=== PATIENT | male | born 1950 | race Caucasian/White ===

== ENCOUNTER → 2019-11-14 | Outpatient (CLI) | payer OTHER | LOC: HYPER 12:09 | PROVIDERS: ATTEND Emergency Medicine Emergency Medical Services | DX: L89.893 Pressure ulcer of other site, stage 3 (principal); G90.09 Other idiopathic peripheral autonomic neuropathy; M25.571 Pain in right ankle and joints of right foot; R60.0 Localized edema; G62.9 Polyneuropathy, unspecified; Z87.891 Personal history of nicotine dependence; Z96.659 Presence of unspecified artificial knee joint; Z96.619 Presence of unspecified artificial shoulder joint ==

== ENCOUNTER → 2019-12-04 | Outpatient (CLI) | payer OTHER | LOC: HYPER 06:19 | PROVIDERS: ATTEND Specialist | DX: L89.893 Pressure ulcer of other site, stage 3 (principal); L03.116 Cellulitis of left lower limb; R60.0 Localized edema; G90.09 Other idiopathic peripheral autonomic neuropathy; M25.571 Pain in right ankle and joints of right foot; Z87.891 Personal history of nicotine dependence ==

== ENCOUNTER → 2019-12-25 | Outpatient (CLI) | payer OTHER | LOC: HYPER 09:55 | PROVIDERS: ATTEND Specialist | DX: L89.893 Pressure ulcer of other site, stage 3 (principal); L03.116 Cellulitis of left lower limb; R60.0 Localized edema; M25.571 Pain in right ankle and joints of right foot; G90.09 Other idiopathic peripheral autonomic neuropathy; Z87.891 Personal history of nicotine dependence ==